=== PATIENT | female | born 1945 | race Caucasian/White ===

== ENCOUNTER 2022-03-12 18:26 | Inpatient (IN) | payer BC, OTHER ==
[2022-03-12 18:57] VITALS: BMI 25.3
[2022-03-12 20:08] LABS: VENOUS BASE EXCESS -0.6 mmol/L (-2-2); VENOUS O2 SATURATION 35.8 % (70-80); VENOUS PCO2 52.6 mmHg (38-52); VENOUS PH 7.318 (7.310-7.410)
[2022-03-12 20:09] LABS: BASO % 0.5 % (0-2.0); EOS % 0.8 % (0-4.5); HEMATOCRIT 45.3 % (32.4-45.2); HEMOGLOBIN 14.9 GM/dL (10.7-15.3); LYMPH % 18.2 % (8-40); MCH 27.7 pg (25.7-33.7); MCHC 32.8 g/dl (32.0-36.0); MEAN CELL VOLUME 84.4 fl (80-96); MEAN PLT VOLUME 8.4 fl (7.5-11.1); MONO % 7.4 % (3.8-10.2); NEUT % 73.1 % (42.8-82.8); PLATELET COUNT 185 10^3/uL (134-434); RBC 5.36 M/mm3 (3.60-5.2); RDW 13.8 % (11.6-15.6); WHITE BLOOD COUNT 5.6 K/mm3 (4.0-10.0)
[2022-03-12 20:30] LABS: CHLORIDE 104 mmol/L (98-107); SODIUM 141 mmol/L (136-145)
[2022-03-12 20:31] LABS: INR 1.04 (0.83-1.09)
[2022-03-12 20:32] LABS: ANION GAP 11 MMOL/L (8-16); CALCIUM 8.9 mg/dL (8.5-10.1); CO2 26 mmol/L (21-32); GLUCOSE,RANDOM 127 mg/dL (74-106)
[2022-03-12 20:33] LABS: ACTIVATED PTT 32.3 SECONDS (25.2-36.5)
[2022-03-12 20:34] LABS: ALBUMIN 3.7 g/dl (3.4-5.0); BLOOD UREA NITROGEN 17.3 mg/dL (7-18)
[2022-03-12 20:36] LABS: CREATININE 0.9 mg/dL (0.55-1.3); SGOT/AST 28 U/L (15-37); SGPT/ALT 27 U/L (13-61)
[2022-03-12 20:37] LABS: BILIRUBIN,TOTAL 0.3 mg/dL (0.2-1)
[2022-03-12 20:39] LABS: ALK PHOS 101 U/L (45-117)
[2022-03-12] MEDS ORDERED: MAGNESIUM SULF 50% (8.12 MEQ/2 ML-1 GM VIAL) IVPB ONE (20:49)
[2022-03-12] MEDS ORDERED: POTASSIUM CHLORIDE TABS 20 MEQ TABLET.ER (FP) PO ONE ×2 (20:50→20:53)
[2022-03-12] MEDS ORDERED: MAGNESIUM SULFATE IN WATER 2 GM/50 ML IVPB IVPB ONE (20:54)
[2022-03-12] MEDS ORDERED: ALBUTEROL SO4 2.5/IPRATROPIUM 0.5 INH SOL 3 ML VIAL.NEB. NEB ONE ×2 (20:58→21:07)
[2022-03-12] MEDS ORDERED: ASPIRIN 81 MG CHEWABLE TABLETS PO ONE (21:40)
[2022-03-12] MEDS ORDERED: ASPIRIN 81 MG CHEWABLE TABLETS ONE (21:52)
[2022-03-12] MEDS ORDERED: LEVALBUTEROL HCL 0.63 MG/3 ML VIAL.NEB. IH PRN (23:41)
[2022-03-12] MEDS ORDERED: BUDESONIDE/FORMETEROL FUMARATE 160/4.5 mcg INHALER IH ONE (23:41)
[2022-03-13] MEDS ORDERED: PATIENT'S OWN MEDICATION (NON-FORMULARY) (Oxycodone Hcl/Acetaminophen [Oxycodone-Acetamino PO PRN (00:08)
[2022-03-13] MEDS ORDERED: ACETAMINOPHEN 325 MG TABLET (FP) PO PRN (02:45)
[2022-03-13] MEDS: oxyCODONE HCL 5 MG TABLET PO PRN ×3 (03:08→23:27)
[2022-03-13] MEDS ORDERED: HYDROCHLOROTHIAZIDE 25 MG TABLET (FP) PO SCH (10:00)
[2022-03-13] MEDS ORDERED: PATIENT'S OWN MEDICATION (NON-FORMULARY) (Meloxicam [Meloxicam] 7.5 MG Tablet) PO SCH (10:00)
[2022-03-13] MEDS ORDERED: amLODIPine BESYLATE 5 MG TABLET (FP) PO SCH (10:00)
[2022-03-13] MEDS ORDERED: metoPROLOL SUCCINATE 25 MG TAB.SR.24H (FP) PO SCH (10:00)
[2022-03-13] MEDS ORDERED: ENOXAPARIN NA (PORCINE) 40 MG/0.4 ML DISP.SYRIN SQ SCH (10:00)
[2022-03-13] MEDS ORDERED: VANCOMYCIN 1 GM/200 ML PREMIX BAG (RESTRICTED TO ID ONLY) IVPB ONE (11:30)
[2022-03-13] MEDS: ASPIRIN 81 MG CHEWABLE TABLETS PO SCH (11:37)
[2022-03-13 12:02] LABS: BASO % 0.2 % (0-2.0); EOS % 0.1 % (0-4.5); HEMATOCRIT 43.4 % (32.4-45.2); HEMOGLOBIN 14.3 GM/dL (10.7-15.3); MCH 27.4 pg (25.7-33.7); MEAN CELL VOLUME 83.2 fl (80-96); MEAN PLT VOLUME 8.8 fl (7.5-11.1); MONO % 7.3 % (3.8-10.2); NEUT % 79.4 % (42.8-82.8); PLATELET COUNT 204 10^3/uL (134-434); RBC 5.22 M/mm3 (3.60-5.2); RDW 13.5 % (11.6-15.6)
[2022-03-13 12:28] LABS: CALCIUM 9.5 mg/dL (8.5-10.1)
[2022-03-13 12:29] LABS: ALBUMIN 3.6 g/dl (3.4-5.0); BLOOD UREA NITROGEN 16.1 mg/dL (7-18); MAGNESIUM 2.6 mg/dL (1.8-2.4)
[2022-03-13 12:32] LABS: CREATININE 0.7 mg/dL (0.55-1.3); PHOSPHOROUS 2.1 mg/dL (2.5-4.9)
[2022-03-13 12:33] LABS: BILIRUBIN,TOTAL 0.5 mg/dL (0.2-1); TOT PROT 6.8 g/dl (6.4-8.2)
[2022-03-13] MEDS ORDERED: CILOSTAZOL 100 MG TABLET PO SCH (13:30)
[2022-03-13] MEDS: CILOSTAZOL 50 MG TABLET PO SCH (14:29)
[2022-03-13] MEDS: metoPROLOL SUCCINATE 25 MG TAB.SR.24H (FP) PO SCH (14:29)
[2022-03-13] MEDS: NICOTINE 21 MG/24 HOURS TOPICAL PATCH TD SCH (14:30)
[2022-03-13] MEDS ORDERED: ENOXAPARIN NA (PORCINE) 30 MG/0.3 ML DISP.SYRIN SQ ONE (16:11)
[2022-03-13] MEDS ORDERED: NAPH,MB-DB/K PH,MBDB POWDER PACKET PO ONE (16:18)
[2022-03-13] MEDS: ATORVASTATIN CA 40 MG TABLET (FP) PO SCH (23:04)
[2022-03-13] MEDS: SACUBITRIL/VALSARTAN 24 MG-26 MG TABLET PO SCH (23:04)
[2022-03-13] MEDS: ENOXAPARIN NA (PORCINE) 80 MG/0.8 ML DISP.SYRIN SQ SCH (23:05)
[2022-03-13] MEDS: DOXYCYCLINE INJECTION 100 MG in DEXTROSE 5%-WATER 100 ML IVPB SCH (23:05)
[2022-03-14] MEDS: CILOSTAZOL 50 MG TABLET PO SCH ×2 (01:53→09:50)
[2022-03-14 07:59] LABS: HEMATOCRIT 45.6 % (32.4-45.2); MCH 27.5 pg (25.7-33.7); MEAN CELL VOLUME 83.3 fl (80-96); MEAN PLT VOLUME 9.3 fl (7.5-11.1); PLATELET COUNT 234 10^3/uL (134-434); RBC 5.47 M/mm3 (3.60-5.2); WHITE BLOOD COUNT 8.2 K/mm3 (4.0-10.0)
[2022-03-14 08:33] LABS: CALCIUM 9.8 mg/dL (8.5-10.1)
[2022-03-14 08:35] LABS: MAGNESIUM 2.4 mg/dL (1.8-2.4)
[2022-03-14 08:38] LABS: CREATININE 0.7 mg/dL (0.55-1.3); PHOSPHOROUS 2.9 mg/dL (2.5-4.9)
[2022-03-14 08:42] LABS: N-TERMINAL BNP 11481.2 pg/ml (5-450)
[2022-03-14] MEDS: DOXYCYCLINE INJECTION 100 MG in DEXTROSE 5%-WATER 100 ML IVPB SCH (09:49)
[2022-03-14] MEDS: ASPIRIN 81 MG CHEWABLE TABLETS PO SCH (09:49)
[2022-03-14] MEDS: ENOXAPARIN NA (PORCINE) 80 MG/0.8 ML DISP.SYRIN SQ SCH ×2 (09:49→23:00)
[2022-03-14] MEDS: NICOTINE 21 MG/24 HOURS TOPICAL PATCH TD SCH (09:49)
[2022-03-14] MEDS: SACUBITRIL/VALSARTAN 24 MG-26 MG TABLET PO SCH ×2 (09:49→22:42)
[2022-03-14] MEDS: metoPROLOL SUCCINATE 25 MG TAB.SR.24H (FP) PO SCH ×2 (09:50→22:44)
[2022-03-14] MEDS ORDERED: NAPH,MB-DB/K PH,MBDB POWDER PACKET PO ONE (13:25)
[2022-03-14] MEDS: oxyCODONE HCL 5 MG TABLET PO PRN (16:13)
[2022-03-14] MEDS ORDERED: MELATONIN 5 MG TABLETS PO SCH (22:00)
[2022-03-14] MEDS: MELATONIN 5 MG TABLETS PO SCH (22:44)
[2022-03-14] MEDS: ATORVASTATIN CA 40 MG TABLET (FP) PO SCH (22:45)
[2022-03-14] MEDS: ALPRAZolam 0.25 MG TABLET PO PRN (22:49)
[2022-03-15] MEDS: oxyCODONE HCL 5 MG TABLET PO PRN ×2 (00:37→19:56)
[2022-03-15] MEDS: DOXYCYCLINE INJECTION 100 MG in DEXTROSE 5%-WATER 100 ML IVPB SCH ×2 (03:30→10:52)
[2022-03-15] MEDS: CILOSTAZOL 50 MG TABLET PO SCH ×3 (04:46→21:38)
[2022-03-15] MEDS: ASPIRIN 81 MG CHEWABLE TABLETS PO SCH (09:48)
[2022-03-15] MEDS: NICOTINE 21 MG/24 HOURS TOPICAL PATCH TD SCH (09:48)
[2022-03-15] MEDS: SACUBITRIL/VALSARTAN 24 MG-26 MG TABLET PO SCH ×2 (09:49→22:50)
[2022-03-15] MEDS: metoPROLOL SUCCINATE 25 MG TAB.SR.24H (FP) PO SCH ×2 (09:49→21:39)
[2022-03-15 10:25] LABS: HEMATOCRIT 45.4 % (32.4-45.2); HEMOGLOBIN 14.7 GM/dL (10.7-15.3); MCH 27.3 pg (25.7-33.7); MCHC 32.3 g/dl (32.0-36.0); MEAN CELL VOLUME 84.7 fl (80-96); MEAN PLT VOLUME 8.9 fl (7.5-11.1); PLATELET COUNT 198 10^3/uL (134-434); RBC 5.37 M/mm3 (3.60-5.2); RDW 14.1 % (11.6-15.6); WHITE BLOOD COUNT 7.4 K/mm3 (4.0-10.0)
[2022-03-15] MEDS: ENOXAPARIN NA (PORCINE) 40 MG/0.4 ML DISP.SYRIN SQ SCH (11:27)
[2022-03-15 13:31] LABS: CALCIUM 9.6 mg/dL (8.5-10.1)
[2022-03-15 13:32] LABS: ALBUMIN 3.3 g/dl (3.4-5.0); BLOOD UREA NITROGEN 23.8 mg/dL (7-18); MAGNESIUM 2.2 mg/dL (1.8-2.4)
[2022-03-15 13:35] LABS: CREATININE 0.8 mg/dL (0.55-1.3); PHOSPHOROUS 2.6 mg/dL (2.5-4.9)
[2022-03-15 13:36] LABS: BILIRUBIN,TOTAL 0.8 mg/dL (0.2-1)
[2022-03-15 13:37] LABS: TOT PROT 6.3 g/dl (6.4-8.2)
[2022-03-15] MEDS: ATORVASTATIN CA 40 MG TABLET (FP) PO SCH (21:34)
[2022-03-15] MEDS: MELATONIN 5 MG TABLETS PO SCH (21:35)
[2022-03-15] MEDS: DOXYCYCLINE HYCLATE 100 MG CAPSULE PO SCH (21:40)
[2022-03-16] MEDS: ALPRAZolam 0.25 MG TABLET PO PRN (00:09)
[2022-03-16 08:26] LABS: HEMATOCRIT 42.9 % (32.4-45.2); HEMOGLOBIN 13.8 GM/dL (10.7-15.3); MCH 27.3 pg (25.7-33.7); MCHC 32.2 g/dl (32.0-36.0); MEAN CELL VOLUME 84.5 fl (80-96); MEAN PLT VOLUME 8.8 fl (7.5-11.1); PLATELET COUNT 247 10^3/uL (134-434); RBC 5.08 M/mm3 (3.60-5.2); RDW 13.8 % (11.6-15.6)
[2022-03-16 09:02] LABS: ALBUMIN 3.1 g/dl (3.4-5.0); BLOOD UREA NITROGEN 28.6 mg/dL (7-18); CALCIUM 9.5 mg/dL (8.5-10.1)
[2022-03-16 09:07] LABS: BILIRUBIN,TOTAL 0.9 mg/dL (0.2-1); TOT PROT 5.9 g/dl (6.4-8.2)
[2022-03-16] MEDS: DOXYCYCLINE HYCLATE 100 MG CAPSULE PO SCH (09:31)
[2022-03-16] MEDS: ENOXAPARIN NA (PORCINE) 40 MG/0.4 ML DISP.SYRIN SQ SCH (09:31)
[2022-03-16] MEDS: ASPIRIN 81 MG CHEWABLE TABLETS PO SCH (09:32)
[2022-03-16] MEDS: SACUBITRIL/VALSARTAN 24 MG-26 MG TABLET PO SCH (09:32)
[2022-03-16] MEDS: metoPROLOL SUCCINATE 25 MG TAB.SR.24H (FP) PO SCH (09:32)
[2022-03-16] MEDS: NICOTINE 21 MG/24 HOURS TOPICAL PATCH TD SCH (09:32)
[2022-03-16] MEDS: CILOSTAZOL 50 MG TABLET PO SCH (09:34)
[2022-03-16 15:32] VITALS: BP 108/51; PULSE 76; RESP 16; TEMP 98.2
== END 2022-03-16 16:00 | disposition home or self-care (01) | DRG 193 ==
LOC: JER 18:26 → JERBED 21:04 → J6W 03-13 02:39 → J2W 03-13 22:05 → J6W 03-14 20:53 → J4W 03-15 22:55
PROVIDERS: ADMIT Internal Medicine; ATTEND Internal Medicine
DX: J10.00 Influenza due to other identified influenza virus with unspecified type of pneumonia (principal); I50.21 Acute systolic (congestive) heart failure; J96.01 Acute respiratory failure with hypoxia; J96.02 Acute respiratory failure with hypercapnia; I24.8 Other forms of acute ischemic heart disease; B33.22 Viral myocarditis; I43 Cardiomyopathy in diseases classified elsewhere; I47.1 Supraventricular tachycardia; I11.0 Hypertensive heart disease with heart failure; I73.9 Peripheral vascular disease, unspecified; E78.00 Pure hypercholesterolemia, unspecified; R73.9 Hyperglycemia, unspecified; F17.210 Nicotine dependence, cigarettes, uncomplicated
CPT/HCPCS: 0241U-QW; 36415; 71045-TC-FY; 71250-TC; 80048; 80053; 80061; 82803; 83036; 83605; 83735; 83880; 84100; 84443; 84484; 85025; 85027; 85379; 85610; 85730; 87040; 87081; 87899; 93005; 93010; 93306-TC; 94660; 94761; 99285-25

== ENCOUNTER 2023-11-14 06:36 | Inpatient (IN) | payer BC ==
[2023-11-14] MEDS ORDERED: METHOCARBAMOL 500 MG TABLET ONE (08:17)
[2023-11-14] MEDS ORDERED: LIDOCAINE 4% PATCH TP ONE (08:17)
[2023-11-14] MEDS: METHOCARBAMOL 750 MG TAB PO ONE (08:38)
[2023-11-14] MEDS: LIDOCAINE 4% PATCH TP ONE (08:39)
[2023-11-14] MEDS: KETOROLAC TROMETHAMINE 30 MG/1 ML VIAL IM ONE (08:52)
[2023-11-14] MEDS ORDERED: oxyCODONE HCL 5 MG TABLET ONE (09:39)
[2023-11-14] MEDS: oxyCODONE HCL 5 MG TABLET PO ONE (09:48)
[2023-11-14 13:07] LABS: BASO % 0.3 % (0-2.0); EOS % 0.6 % (0-4.5); HEMATOCRIT 42.3 % (32.4-45.2); HEMOGLOBIN 14.2 GM/dL (10.7-15.3); LYMPH % 8.9 % (8-40); MCH 27.5 pg (25.7-33.7); MCHC 33.6 g/dl (32.0-36.0); MEAN CELL VOLUME 81.8 fl (80-96); MONO % 9.1 % (3.8-10.2); NEUT % 81.1 % (42.8-82.8); PLATELET COUNT 206 10^3/uL (134-434); RBC 5.18 M/mm3 (3.60-5.2); RDW 14.9 % (11.6-15.6); WHITE BLOOD COUNT 7.9 K/mm3 (4.0-10.0)
[2023-11-14 13:11] LABS: INR 1.08 (0.83-1.09); PROTHROMBIN TIME (PATIENT) 12.2 SEC (9.7-13.0)
[2023-11-14 13:14] LABS: ACTIVATED PTT 32.1 SECONDS (25.2-36.5)
[2023-11-14 13:26] LABS: BLOOD UREA NITROGEN 14.2 mg/dL (7-18)
[2023-11-14 13:27] LABS: ALBUMIN 3.9 g/dl (3.4-5.0)
[2023-11-14 13:31] LABS: CREATININE 0.7 mg/dL (0.55-1.3)
[2023-11-14 13:32] LABS: BILIRUBIN,TOTAL 0.8 mg/dL (0.2-1); TOT PROT 7.2 g/dl (6.4-8.2)
[2023-11-14] MEDS ORDERED: MORPHINE SULFATE 2 MG/ML SYRINGE ONE (14:02)
[2023-11-14] MEDS ORDERED: PATIENT'S OWN MEDICATION (NON-FORMULARY) (Meloxicam [Meloxicam] 7.5 MG Tablet) PO SCH (16:00)
[2023-11-14] MEDS ORDERED: ACETAMINOPHEN 325 MG TABLET (FP) ONE (16:03)
[2023-11-14] MEDS ORDERED: LIDOCAINE 5% TOPICAL PATCH ONE (16:03)
[2023-11-14] MEDS: ACETAMINOPHEN 325 MG TABLET (FP) PO PRN (16:16)
[2023-11-14] MEDS: LIDOCAINE 5% TOPICAL PATCH TP SCH (16:17)
[2023-11-14 18:49] VITALS: BMI 30.5
[2023-11-14] MEDS: metoPROLOL SUCCINATE 25 MG TAB.SR.24H (FP) PO SCH (21:14)
[2023-11-14] MEDS: LIDOCAINE PATCH REMOVAL MC SCH (21:14)
[2023-11-14] MEDS: ROSUVASTATIN CA 5 MG TABLET PO SCH (21:14)
[2023-11-14] MEDS: LIDOCAINE PATCH REMOVAL MC ONE (21:14)
[2023-11-14] MEDS: HYDROmorphone HCL CARPU-JECT 2 MG/1 ML DISP.SYRIN IVPB PRN (21:15)
[2023-11-14] MEDS: UMECLIDINIUM/VILANTEROL (ANORO) 62.5/25 MCG INHALER IH SCH (21:34)
[2023-11-14] MEDS: CILOSTAZOL 100 MG TABLET PO SCH (21:34)
[2023-11-15] MEDS ORDERED: SENNOSIDES 8.6MG TABLET (FP) PO PRN (08:16)
[2023-11-15] MEDS: ACETAMINOPHEN 1000 MG/100 ML BAG IVPB SCH (08:42)
[2023-11-15] MEDS ORDERED: NAPROXEN 250 MG TABLET PO SCH (10:00)
[2023-11-15] MEDS: SACUBITRIL/VALSARTAN 24 MG-26 MG TABLET PO SCH (10:08)
[2023-11-15] MEDS: FUROSEMIDE 40 MG TABLET (FP) PO SCH (10:08)
[2023-11-15] MEDS: POLYETHYLENE GLYCOL (HEALTHYLAX) 3350 17 GM PACKET PO SCH (10:09)
[2023-11-15 10:12] LABS: HEMATOCRIT 43.2 % (32.4-45.2); HEMOGLOBIN 14.6 GM/dL (10.7-15.3); MCH 27.5 pg (25.7-33.7); MCHC 33.7 g/dl (32.0-36.0); MEAN CELL VOLUME 81.6 fl (80-96); MEAN PLT VOLUME 8.8 fl (7.5-11.1); PLATELET COUNT 242 10^3/uL (134-434); WHITE BLOOD COUNT 10.4 K/mm3 (4.0-10.0)
[2023-11-15 10:32] LABS: POTASSIUM 4.2 mmol/L (3.5-5.1)
[2023-11-15 10:38] LABS: ALBUMIN 3.4 g/dl (3.4-5.0); BLOOD UREA NITROGEN 23.3 mg/dL (7-18); CALCIUM 9.7 mg/dL (8.5-10.1); MAGNESIUM 2.1 mg/dL (1.8-2.4)
[2023-11-15 10:42] LABS: BILIRUBIN,TOTAL 1.1 mg/dL (0.2-1); CREATININE 0.9 mg/dL (0.55-1.3); PHOSPHOROUS 3.5 mg/dL (2.5-4.9); TOT PROT 6.6 g/dl (6.4-8.2)
[2023-11-15 17:02] VITALS: RESP 18
[2023-11-15 20:07] VITALS: BP 84/64; PULSE 75; TEMP 98.1
== END 2023-11-15 19:00 | disposition short-term general hospital (02) | DRG 536 ==
LOC: JER 06:36 → JERBED 11:00 → J6S 17:39
PROVIDERS: ADMIT Internal Medicine; ATTEND Internal Medicine
DX: S72.142A Displaced intertrochanteric fracture of left femur, initial encounter for closed fracture (principal); I50.22 Chronic systolic (congestive) heart failure; I24.89 Other forms of acute ischemic heart disease; I11.0 Hypertensive heart disease with heart failure; E78.5 Hyperlipidemia, unspecified; I73.9 Peripheral vascular disease, unspecified; I44.7 Left bundle-branch block, unspecified; I51.3 Intracardiac thrombosis, not elsewhere classified; X58.XXXA Exposure to other specified factors, initial encounter; Y93.89 Activity, other specified; Y92.89 Other specified places as the place of occurrence of the external cause; Y99.8 Other external cause status
CPT/HCPCS: 36415; 71045-TC-FY; 72170-TC-FY; 72192-TC; 73502-TC-LT-FY; 73552-TC-LT-FY; 80053; 83735; 83880; 84100; 85025; 85027; 85610; 85730; 86850; 86900; 86901; 87635; 93005; 93010; 93306-TC; 99285-25; J0131